=== PATIENT | male | born 1955 | race Hispanic/Latino ===

== ENCOUNTER 2019-03-01 03:41 | Emergency (ER) | payer BC ==
[~2019-03-01 03:41] MED LIST: LISI10TA7 PO
[2019-03-01] MEDS ORDERED: LIDOCAINE HCL 2% VISCOUS 15 ML UDCUP ONE (04:34)
[2019-03-01] MEDS ORDERED: MAG HYDROX/AL HYDROX/SIMETH ES 30 ML SUSP UDCUP ONE (04:34)
[2019-03-01] MEDS ORDERED: IPRATROPIUM/ALBUTEROL SULFATE 3 ML SOLUTION IH ONE (04:35)
== END 2019-03-01 05:23 | disposition home or self-care (01) ==
LOC: EDH 03:41
DX: R05 Cough (principal); I10 Essential (primary) hypertension
CPT/HCPCS: 94640